=== PATIENT | male | born 1990 | race Caucasian/White ===

== ENCOUNTER → 2021-09-26 | Outpatient (CLI) | payer BC | LOC: M WUC 09:36 | PROVIDERS: ATTEND Physician Assistant | DX: M25.572 Pain in left ankle and joints of left foot (principal) ==

== ENCOUNTER → 2024-08-23 | Outpatient (REF) | payer OTHER | LOC: M LAB REF 20:02 | PROVIDERS: ATTEND Student in an Organized Health Care Education/Training Program | DX: M79.644 Pain in right finger(s) (principal) ==